=== PATIENT | female | born 2000 | race Two or more races ===

== ENCOUNTER 2021-11-24 18:17 | Emergency (ER) | payer OTHER ==
[~2021-11-24] VITALS: Ht 157.5 cm; Wt 63.5 kg
[2021-11-24] MEDS ORDERED: IPRAT-ALBUT 0.5-3 ML IH (22:04)
== END 2021-11-24 22:12 | disposition home or self-care (01) ==
LOC: ER 18:17
DX: R06.02 Shortness of breath (principal); Z20.822 Contact with and (suspected) exposure to COVID-19